=== PATIENT | female | born 1970 | race Caucasian/White ===

== ENCOUNTER → 2017-12-11 13:23 | Outpatient (CLI) | payer BC, SELFPAY ==
[2017-12-11 15:38] LABS: Free T3 2.7 pg/mL (2.18-3.98); T4 Free Direct 1.24 ng/dL (0.76-1.46); Thyroid Stim Hormone (TSH) 1.36 uIU/mL (0.358-3.74)
== END ==
PROVIDERS: Family Provider Radiologic Technologist Bone Densitometry; PCP Radiologic Technologist Bone Densitometry; Visit Provider Nurse Practitioner
DX: E03.9 Hypothyroidism, unspecified (principal)
CPT/HCPCS: 36415; 84439; 84443; 84481

== ENCOUNTER → 2018-01-15 09:54 | Outpatient (CLI) | payer BC, SELFPAY ==
--- NOTE | 2018-01-15 09:56 | HPBI_ITS ---
MAMMOGRAPHY - BILATERAL SCREENING REASON FOR EXAM: Female, 47 years old. Routine annual screening examination. PERTINENT HISTORY: Aunt with breast cancer. TECHNIQUE: Digital bilateral breast khanh (3D mammographic acquisition) in the CC and MLO projections. 2-D mediolateral oblique (MLO) and craniocaudad (CC) views of both breasts were obtained. CAD: Full Field Digital Mammography with Computer Added Detection was performed. COMPARISON: Comparison is made with prior study dated December 02, 2016 and October 24, 2011. FINDINGS: Breast Composition: There are scattered areas of fibroglandular density. There are no dominant masses or suspicious calcifications. No other significant abnormalities are identified. There has been no significant change since the prior study. HPBI/SCREENING MAMM (CAD), BILAT IMPRESSION: Stable bilateral screening mammogram. Yearly follow-up mammogram recommended. (A) ASSESSMENT CATEGORY: BIRADS Category 1: Negative. A letter regarding these results will be sent to the patient by the facility within 30 days. Approximately 10% of breast cancers are not detected by mammography. A normal mammogram should not delay biopsy of a clinically suspicious abnormality. [id number] Electronically Signed: Urban Nice MD at 12:28 EST Tel [phone], Service support ,
== END ==
PROVIDERS: Family Provider Radiologic Technologist Bone Densitometry; PCP Radiologic Technologist Bone Densitometry; Visit Provider Obstetrics & Gynecology
DX: Z12.31 Encounter for screening mammogram for malignant neoplasm of breast (principal)
CPT/HCPCS: 77063; 77067

== ENCOUNTER → 2018-01-20 10:28 | Outpatient (CLI) | payer BC, SELFPAY ==
[2018-01-20 14:08] LABS: Hemoglobin A1c 5.4 % (4.2-6.3)
[2018-01-20 14:20] LABS: Progesterone Level 30.88 ng/mL (See Comment)
[2018-01-20 14:50] LABS: Estradiol 27.6 pg/mL; Free T3 1.9 pg/mL (2.18-3.98); T4 Free Direct 1.25 ng/dL (0.76-1.46); Thyroid Stim Hormone (TSH) 1.74 uIU/mL (0.358-3.74)
[2018-01-21 12:05] LABS: DHEA Sulfate 27.2 ug/dL (41.2-243.7)
[2018-01-22 08:09] LABS: HPV Reflexed? NOT INDICATED
== END ==
PROVIDERS: Visit Provider Obstetrics & Gynecology
DX: N95.1 Menopausal and female climacteric states (principal); Z12.4 Encounter for screening for malignant neoplasm of cervix
CPT/HCPCS: 36415; 82533; 82627; 82670; 83036; 84144; 84403; 84439; 84443; 84481; 88175; 82626; G0145

== ENCOUNTER → 2018-09-09 14:12 | Outpatient (CLI) | payer BC, SELFPAY ==
[2018-09-09 15:42] LABS: Free T3 2.2 pg/mL (2.18-3.98); T4 Free Direct 1.07 ng/dL (0.76-1.46); Thyroid Stim Hormone (TSH) 1.69 uIU/mL (0.358-3.74)
== END ==
PROVIDERS: Referring Provider Nurse Practitioner; Visit Provider Nurse Practitioner
DX: E03.9 Hypothyroidism, unspecified (principal)
CPT/HCPCS: 36415; 84439; 84443; 84481

== ENCOUNTER → 2019-02-01 14:04 | Outpatient (CLI) | payer BC, SELFPAY ==
--- NOTE | 2019-02-01 14:06 | BI_ITS ---
MAMMOGRAPHY - BILATERAL SCREENING REASON FOR EXAM: Female, 48 years old. Routine annual screening examination. PERTINENT HISTORY: Aunt with breast cancer. Prior left surgical breast biopsy. TECHNIQUE: Digital bilateral breast khanh (3D mammographic acquisition) in the CC and MLO projections. 2-D mediolateral oblique (MLO) and craniocaudad (CC) views of both breasts were obtained. CAD: Full Field Digital Mammography with Computer Added Detection was performed. COMPARISON: Comparison is made with prior study dated January 15, 2018 and December 02, 2016. FINDINGS: Breast Composition: There are scattered areas of fibroglandular density. There are no dominant masses or suspicious calcifications. No other significant abnormalities are identified. There has been no significant change since the prior study. BI/SCREENING MAMM (CAD), BILAT IMPRESSION: Stable bilateral screening mammogram. Yearly follow-up mammogram recommended. (A) ASSESSMENT CATEGORY: BIRADS Category 1: Negative. A letter regarding these results will be sent to the patient by the facility within 30 days. Approximately 10% of breast cancers are not detected by mammography. A normal mammogram should not delay biopsy of a clinically suspicious abnormality. [id number] Electronically Signed: Urban Nice, at 15:57 EDT , Service support ,
== END ==
PROVIDERS: Visit Provider Obstetrics & Gynecology
DX: Z12.31 Encounter for screening mammogram for malignant neoplasm of breast (principal)
CPT/HCPCS: 77063; 77067

== ENCOUNTER → 2019-03-17 11:42 | Outpatient (CLI) | payer BC, SELFPAY ==
[2017-10-28 12:58] VITALS: BMI 25.3
[2019-03-17 14:08] LABS: Hemoglobin A1c 5.9 % (4.2-6.3)
[2019-03-17 14:09] LABS: Estradiol 11.5 pg/mL; Free T3 2.7 pg/mL (2.18-3.98); Thyroid Stim Hormone (TSH) 0.97 uIU/mL (0.358-3.74)
[2019-03-17 14:10] LABS: Progesterone Level 33.23 ng/mL (See Comment)
[2019-03-18 11:39] LABS: DHEA Sulfate 77.7 ug/dL (41.2-243.7)
[2019-03-21 14:38] LABS: HPV Reflexed? NOT INDICATED
== END ==
LOC: WOBLAB 11:43
PROVIDERS: Visit Provider Obstetrics & Gynecology
DX: Z12.4 Encounter for screening for malignant neoplasm of cervix (principal); N95.1 Menopausal and female climacteric states
CPT/HCPCS: 36415; 82533; 82627; 82670; 83036; 84144; 84403; 84439; 84443; 84481; 88175; 82626; G0145

== ENCOUNTER → 2019-11-16 11:18 | Outpatient (CLI) | payer BC, SELFPAY ==
[2017-10-28 12:58] VITALS: BMI 25.3
[2019-11-16 13:14] LABS: Thyroid Stim Hormone (TSH) 4.17 uIU/mL (0.358-3.74)
== END ==
PROVIDERS: Visit Provider Advanced Practice Midwife
DX: E05.90 Thyrotoxicosis, unspecified without thyrotoxic crisis or storm (principal)
CPT/HCPCS: 36415; 84443

== ENCOUNTER → 2020-04-05 14:15 | Outpatient (CLI) | payer BC, SELFPAY ==
[2017-10-28 12:58] VITALS: BMI 25.3
--- NOTE | 2020-04-05 | EMB_PTH ---
PATIENT: MARCO SANTANA LOC: [facility] U#:[id number] AGE/SX: 54/F ROOM: RE04/05/[address]: Dr. Sascha Vasquez MD : 1970 BED: DIS: SPEC #: [id number] RECD: 04/06/20 10:54 STATUS: LAKIA REQ #: [id number] CHARLES: 04/05/20 00:[address]: Sascha Vasquez DEPT: SURGICAL PATHOLOGY RECD BY: Anish Villalpando ENTERED: 04/06/20 10:54 SP TYPE: ENDOM BX/C ERICK DR: Dr. Debbie Calzada MD Tissues: Endometrium, NOS Procedures: Surgery Specimen Level IV HEADER OPERATION: Endometrial biopsy PRE-OP DIAGNOSIS: Abnormal uterine bleeding TISSUE SUBMITTED: Endometrial biopsy MICROSCOPIC DIAGNOSIS Endometrial biopsy: Proliferative endometrium. SJ:teresa 04/09/20 MICROSCOPIC DESCRIPTION Slides are reviewed. GROSS DESCRIPTION Received in fixative is one container labeled with the patient's name and designated EM biopsy. The specimen consists of multiple irregular fragments of starks-pink soft tissue that in aggregate measure 2.5 x 0.5 x <0.1 cm. The specimen is totally submitted in one cassette. / SJ:teresa 04/06/20 TC:4 CPT: 56766
== END ==
PROVIDERS: Visit Provider Obstetrics & Gynecology
DX: N93.8 Other specified abnormal uterine and vaginal bleeding (principal)
CPT/HCPCS: 88305

== ENCOUNTER 2020-05-28 05:29 | Day surgery (SDC) | payer BC, SELFPAY ==
--- NOTE | 2020-05-23 11:31 | EKG12_ITS ---
Test Reason : PRE OP Blood Pressure : / mmHG Vent. Rate : 064 BPM Atrial Rate : 064 BPM P-R Int : 136 ms QRS Dur : 072 ms QT Int : 410 ms P-R-T Axes : 013 066 017 degrees QTc Int : 422 ms Normal sinus rhythm Non-specific ST & T wave changes Abnormal ECG Confirmed by TERESA BEDOLLA, ANASTASIIA ([id number]), desk editor PATRICIO CRUZ ([id number]) on 05/25/2020 9:09:09 AM Referred By: Sascha Vasquez Confirmed By:NATA MOORE MD
[2020-05-23 12:09] LABS: Hematocrit 39.2 % (37-47); Hemoglobin 13.2 g/dL (12.0-15.0); Mean Corp Hgb Conc 33.7 g/dL (32-36); Mean Corpuscular Hgb 30.4 pg (27.0-32.0); Mean Corpuscular Volume 90.3 fL (81-99); Mean Platelet Vol. 10.6 fl (6.2-12.0); Platelet Count 424 K/mm3 (150-450); RBC Distribution Width SD 42.5 fl (35.1-43.9); Red Blood Count 4.34 M/mm3 (4.2-5.4); White Blood Count 7.8 K/mm3 (4.4-11.0)
[2020-05-23 12:20] LABS: Prothrombin Time (Protime)PT. 12.8 SECONDS (11.7-14.9)
[2020-05-23 12:21] LABS: Partial Thromboplast Time 30.7 Seconds (24.1-36.2)
[2020-05-23 12:39] LABS: Creatinine, Serum 0.59 mg/dL (0.55-1.02); EST Glomerular Filtration Rate 115 mL/min (>60); Est Glom Filt Rate - Afr Amer 139 mL/min (>60); Internal QC Validated? YES +Cl - CLEAR BKGD; Pregnancy, Serum, hCG Quali. NEGATIVE Negative
--- NOTE | 2020-05-27 21:23 | PCM.HP.BLA ---
History and Physical Date of Admission: 05/28/20 Surgical History and Physical Halie Chase, a 49 year old female 0 2 0 2 2, presents for Submucous Fibroids, Menorrhagia, Pelvic Pain on May at 7:30. -- Menorrhagia, Submucous Fibroids -- Submucous fibroids noted at u/s in 2019. Has tried multiple medications and had D and C for bleeding issues. Just done with this and wants hysterectomy. MEDICATIONS HISTORY: Patient is also takin. Advair Diskus 250 mcg-50 mcg/dose powder for inhalation 2. albuterol sulfate HFA 90 mcg/actuation aerosol inhaler 3. Singulair 10 mg tablet 4. levothyroxine 100 mcg tablet, One pill by mouth once a day 5. lisinopril 20 mg tablet, One pill by mouth once a day ALLERGIES: NKDA, sulfa, Hives, Sulfa (Sulfonamide Antibiotics), Hives and/or rash, [place], Anaphylaxis, Kiwi, Anaphylaxis, Banana, Anaphylaxis, melon and Anaphylaxis Infections - h/o UTIs, chicken pox Illnesses - HTN, asthma, endometriosis, thyroidectomy Accidents - no injuries of consequence Hospitalizations - Childbirth, see surgery and HTN ER visit h/o abn. pap, colposcopy, and LEEP 10 yrs. ago; Review of Systems: GENERAL - Denies fever, or chills SKIN - Denies skin changes EYES - Denies visual changes EARS - Denies difficulty hearing NOSE - Denies nasal congestion or bleeding MOUTH - Denies sore throat or difficulty swallowing NECK - Denies pain or swelling RESPIRATORY - Denies shortness of breath or wheezing CARDIOVASCULAR - Denies palpitations or chest pain GASTROINTESTINAL - Denies nausea, vomiting, diarrhea, constipation GENITOURINARY - Denies dysuria, frequency of urination, incontinence of urine MUSCULOSKELETAL - Denies joint or muscle pain NEUROLOGICAL - Denies localized numbness or weakness PSYCHIATRIC - Denies depression or anxiety ENDOCRINE - Denies heat or cold intolerance, weight loss or gain HEMATO-IMMUNOLOGIC - Denies excessive bleeding with cuts SOCIAL HISTORY: Alcohol Use - RARELY Smoking - used to smoke but quit Diet - balanced Diet Lifestyle - high stress lifestyle Exercise - minimal Seat Belt Use - always Employer - [employer] Job Description - manager diabetes Illicit Drug Use - denies use of street drugs Sexual Activity - not currently Residence - owns a home Hours Worked - full-time Spouse-Sig Other Name - n/a Children Name(s) - Jeramie Arguelles twins Control - abstinence FAMILY HISTORY: Family history of 2 maternal aunts- breast cancer. Maternal Grandmother: Marshall Dz.. MENSTRUAL HISTORY: LMP Known?- Definite Amount/Duration - 4 days, Regularity - Irregular, Frequency - variable days, LMP - 03/29/20, Age Onset Menarche - 11 PAST PREGNANCIES: Total Pregnancies - 1; Full Term Pregnancies - 0; Premature - 2; Abortions, Induced - 0; Abortions, Spontaneous - 0; Ectopics - 0; Multiple Births - 2; Living Children - 2 SURGICAL HISTORY: 1. LEEP 1992 2. Breast cyst 1992 3. Total Thyroidectomy 2006 4. Laparoscopy , 5. Gallbladder 2000 6. Colopscopy 7. Hysteroscopy PHYSICAL EXAM BP- 138/82 Sitting, Right arm, regular cuff Weight- 165.33431 lbs Height- 67.25 inch BMI:25.70 CONSTITUTIONAL - NAD, well nourished, and well developed SKIN - No rash, lesions, or ulcers HEENT - Normocephalic, PERRLA, EOMI NECK - No nodes, no nuchal rigidity and thyroid normal size and texture LYMPH NODES - Palpation of lymph nodes in neck and groins within normal limits LUNGS - CTA x2 without wheezes, crackles or rales CARDIAC - Regular rate and rhythm without rubs, murmurs, or gallops ABDOMEN - Without hepatosplenomegaly, distention, masses, rebound, or guarding; normal bowel sounds; no hernias EXTREMITIES - No edema or calf tenderness NEUROLOGICAL - Cranial nerves II-XII grossly intact PSYCHIATRIC - A and O to time, place, person, mood and affect External Genital Vagina - non-tender without lesions Urethra/Urethral Meatus - non-tender Bladder - non-tender Vagina - vaginal thomas are pink and moist without loss of rugae and no evidence of atropy Cervix - without cervical motion tenderness and has normal size and features without evident lesions Uterus - multiparous size 6 cm & wt 75-125 g Adnexa - Know fibroid an rt ovarian cyst per US, unable to palpate,no tenderness to palpation noted ASSESSMENT/PLAN: 1. Abdominal Pain Generalized, Premenopause Menorrhagia and Submucous Leiomyoma Of Uterus EMBx OK. Discussed options for treatment in light of multiple treatments tried over the years pt desires proceeding with hysterectomy. Cervix high in vagina so will proceed with RAVH/BSO. Discussed RBAS and all questions answered.
[2020-05-28] VITALS (11 sets, daily range): BP systolic 98–159; BP diastolic 50–87; PULSE 60–85; RESP 14–18; TEMP 36.2–36.9; O2SAT 96–100; BMI 25.8
[2020-05-28 06:08] LABS: Internal QC Validated? YES +Cl - CLEAR BKGD; Pregnancy, Urine Negative Negative
[2020-05-28] MEDS: Lactated Ringers 1,000 ML 100 ML IV ×2 (06:44→06:45)
--- NOTE | 2020-05-28 07:30 | HYST_PTH ---
PATIENT: MARCO SANTANA [place] [facility] [place][id number] AGE/SX: 49/F ROOM: RE05/28/[address]: Dr. Sascha Vasquez MD : 1970 BED: DIS: 05/29/2020 SPEC #: [id number] RECD: 05/28/20 10:51 STATUS: LAKIA JERSE[place] #: [id number] CHARLES: 05/28/20 07:[address]: Sascha Vasquez DEPT: SURGICAL PATHOLOGY RECD BY: Alex Avila Tissues: Uterus, NOS Procedures: Surgery Specimen Level V HEADER OPERATION: Lap robotic hysterectomy, BSO PRE-OP DIAGNOSIS: Abdominal pain; premenopause menorrhagia; submucous leiomyoma of uterus TISSUE SUBMITTED: Uterus, bilateral fallopian tubes and ovaries MICROSCOPIC DIAGNOSIS Uterus, hysterectomy: Cervix - nabothian cysts, squamous metaplasia and minimal chronic inflammation. Endometrium - transition endometrium. Myometrium - superficial adenomyosis. Right fallopian tube - no pathologic change. Right ovary - no pathologic change. Left fallopian tube - no pathologic change. Left ovary - corpus luteal cyst and corpora albicantia. AM:teresa 05/29/20 MICROSCOPIC DESCRIPTION Slides are reviewed. GROSS DESCRIPTION Received in fixative is one container labeled with the patient's name and designated uterus, bilateral fallopian tubes and ovaries. The specimen consists of a hysterectomy specimen consisting of uterus with cervix and attached bilateral fallopian tubes and ovaries. The uterus with cervix weighs 92 gm and measures 8.5 x 6 x 4 cm. The serosal surface is starks, glistening. The ectocervical mucosa is unremarkable. The external os is oval in contour. The endocervical canal measures 3 cm in length and the endocervical mucosa is unremarkable. The triangular endometrial cavity measures 4 cm in length and up to 2.5 cm in width. The endometrium is starks, glistening without any mass lesion and measures <0.1 cm in thickness. Sections of the uterine wall do not reveal any mass lesion and it measures up to 2.2 cm in thickness. The right fallopian tube measures 7 cm in length and up to 0.7 cm in diameter. The fimbrial end is identified. The right ovary measures 2 x 1 x 1 cm. Sections reveal unremarkable cut surfaces. The left fallopian tube is similar appearance to right and measures 5 cm in length and 0.9 cm in diameter. The left ovary measures 2.5 x 2 x 0.7 cm. Sections reveal a cyst filled with clear fluid measuring 0.5 cm in greatest dimension. No tubo-ovarian adhesions are identified on both right or left side. Bakery Decorator sections are submitted in ten cassettes as follows: 1 - anterior cervix, 2 - posterior cervix, 3 & 4 - anterior uterine wall, 5 & 6 - posterior uterine wall, 7 - right fallopian tube, 8 - right ovary, 9?- left fallopian tube, 10 - left ovary. / PASCUAL:tereas 05/28/20 TC:5 CPT: 82122
--- NOTE | 2020-05-28 07:34 | OP.PCM_ITS ---
Report of Operation Date of Procedure: 05/28/20 Pre-Operative Diagnosis: Menorrhagia, Submucous Fibroids Post-Operative Diagnosis: Menorrhagia, Submucous Fibroids Surgery/Procedure Performed:: Robotic Assisted Vaginal Hysterectomy and Bilateral Salpingo-Oophorectomy Description of Surgical Findings:: 10 cm uterus with normal-appearing fallopian tubes and ovaries. project management engineer: Isai Munoz Type of Anesthesia:: General - Endotracheal Anesthesiologist: Paul Jones Specimen's removed: Uterus and bilateral fallopian tubes and ovaries Drains: Cortes to straight drain Estimated Blood Loss (mL): Minimal Fluids Replaced: Crystalloid Description of Procedure: Surgeon: Sascha Vasquez MD, FACOG Indication: This is a 49 year old patient who has been having problems with heavy periods and submucous fibroids. Conservative measures have not been helpful. The patient has been counseled regarding the risks, benefits and alternatives of this procedure including the possibility of bleeding, infection, and injury to surrounding structures such as bowel bladder and all questions were answered. She understands that if BSO is done that she will need to be on HRT for an indefinite period of time. Procedure: Pt taken to the operating room where, after induction of general anesthesia, the patient was prepped and draped in the usual sterile fashion and placed on a non-slip Huggy-u-vac device. Trendelenburg test was satisfactory. Bladder was drained of urine with a latex free Cortes catheter which was left in place. Anterior cervix grasped and cervix was dilated to about 3-4 mm. Uterus sounded to 8 cms. 0-Vicryl suture was placed at the 3:00 and 9:00 position of the cervix. A small Advincula Email Marketing Coordinator Uterine Manipulator was then placed in the uterus and attention was turned to the laparoscopic portion of the procedure. Ropivocaine 0.5% was injected approximately 2-3 cm superior to the umbilicus and an 8 mm robotic camera port was introduced directly with intraperitoneal placement confirmed with CO2 insufflation. 8 mm robotic side ports were introduced under direct visualization approximately 11 cm lateral and 2 cm inferior to the umbilical port. A 5 mm left upper quadrant port was introduced and airseal insufflation with CO2 was started. The above findings were noted. Robot was docked without difficulty and attention turned to the robotic portion of the procedure. Approximately 20 cc of Ropivicaine was used. Bilateral infundibulopelvic ligaments were ligated with 35 jorgensen bipolar coagulation to the level of the round ligament. The posterior aspect of the cervix was identified and then opened for about 1 cm using 25 watt monopolar cautery identifying the uterine manipulating device which had been placed vaginally. Bladder flap was opened and divided to the level of the round ligaments using monopolar cautery. Progressive bites were then ligated on each side of the cervix with 35 jorgensen bipolar cautery to the uterine arteries. The anterior vaginal mucosa was entered and cervix circumscribed with monopolar cautery. Uterus and attached tubes and ovaries were removed through the vagina. Vaginal cuff was closed first with 0-Vicryl Tigre stitches placed at each angle followed by closure of the mid-cuff with 0-Monocryl V-lock suture in two layers. Pelvis was copiously irrigated with saline and the right ureter was noted to peristalse. Robot was undocked and trocars were removed with as much gas as possible. Incisions were closed with 4-0 Monocryl subcuticular sutures and incisions covered with steri-strips. The patient tolerated the procedure well and was taken to the recovery room in satisfactory condition. Sponge, instruments and needle counts were all correct. There were no apparent complications of the surgery. Cefotan 2 gms IV was given prior to the procedure. Grafts/Implants Used: None - Complications None - Admit VTE Documentation VTE Present on Admission: Yes VTE Mechan Device Prophylaxis: SCD's VTE Pharm Prophylaxis ordered?: Yes
--- NOTE | 2020-05-28 07:36 | DCINST_ITS ---
Discharge Diet: No Restrictions Discharge Activity: Return to Normal Activity, May Not Drive - while taking narcotic pain medications., May Shower, May Take a Tub Bath May resume sexual activity in: 6-8 weeks Call your doctor if your incision/area has: Continuous Slow Oozing, Sudden Inc reased Bleeding, Increased Pain/ Swelling, Increased Redness, Foul Smelling Discharge Call your doctor if you observe: Fever of 101 or Higher, Inability to urinate, Inability to have a bowel movement, Using more than one pad per hour Allergies/Adverse Reactions: Allergies Sulfa (Sulfonamide Antibiotics) Allergy (Severe, Verified 05/28/20 05:56) Unknown sulfamethoxazole [From Bactrim] Allergy (Severe, Verified 05/28/20 05:56) Unknown trimethoprim [From Bactrim] Allergy (Severe, Verified 05/28/20 05:56) Unknown banana Allergy (Verified 05/28/20 05:56) Anaphylaxis kiwi Allergy (Verified 05/28/20 05:56) Anaphylaxis latex Allergy (Verified 05/28/20 05:56) Hives melon Allergy (Verified 05/28/20 05:56) Anaphylaxis strawberry Allergy (Verified 05/28/20 05:56) Anaphylaxis latex gloves Allergy (Severe, Uncoded 05/28/20 05:56) Unknown Medications to take at Discharge ergocalciferol (vitamin D2) 1,250 mcg (50,000 unit) capsule 50,000 unit PO QWEEK 10/28/17 levalbuterol HCl 1.25 mg/3 mL solution for nebulization 1.25 mg INHALATION Q4H PRN 10/28/17 levalbuterol tartrate 45 mcg/actuation aerosol inhaler 2 inh INHALATION Q6H PRN 10/28/17 lisinopril 10 mg tablet 20 mg PO QDAY 10/28/17 Levothyroxine [Synthroid] 100 mcg PO DAILY 05/22/20 Docusate Sodium [Colace] 100 mg PO BID PRN PRN #60 cap 05/28/20 Estradiol 1 mg PO DAILY #100 tab 05/28/20 Oxycodone [Oxyir] 5 mg PO Q6H PRN PRN 7 Days #20 tablet 05/28/20 The following prescriptions were given: Docusate Sodium [Colace] 100 mg PO BID PRN PRN #60 cap PRN Reason: Constipation Transmission Status: Pending to [facility] [address] Estradiol 1 mg PO DAILY #100 tab Transmission Status: Pending to [facility] [address] Oxycodone [Oxyir] 5 mg PO Q6H PRN PRN 7 Days #20 tablet PRN Reason: Pain Score 6-10/10 Transmission Status: Received by [facility] Primary Care Physician: CARROLL BATES [Other] Test Results: Test results from this visit will be discussed in further detail at your follow- up appointment, if applicable. Please Follow Up With: Sascha Vasquez MD When: 2 to 3 weeks
--- NOTE | 2020-05-28 11:21 | CPS ---
smi placed at bedside...pt not in room.
[2020-05-28] MEDS: Dextrose 5%-Lactated Ringers 1,000 ML 150 ML IV ×2 (11:45→18:37)
[2020-05-28] MEDS: Ketorolac 30 MG/ML Syringe IV ×2 (16:18→21:00)
[2020-05-28] MEDS: Enoxaparin 30 MG/0.3 ML Syringe SC (18:38)
[2020-05-29] MEDS: Ketorolac 10 MG Tablet PO ×2 (03:24→08:00)
[2020-05-29 04:00] VITALS: BP 108/57; PULSE 60; RESP 17; TEMP 36.6; O2SAT 97
[2020-05-29] MEDS: Levothyroxine 100 MCG Tablet PO (05:51)
[2020-05-29 06:07] LABS: Hematocrit 33.8 % (37-47); Hemoglobin 11.1 g/dL (12.0-15.0); Mean Corp Hgb Conc 32.8 g/dL (32-36); Mean Corpuscular Hgb 30.2 pg (27.0-32.0); Mean Corpuscular Volume 91.8 fL (81-99); Mean Platelet Vol. 10.5 fl (6.2-12.0); Platelet Count 344 K/mm3 (150-450); RBC Distribution Width CV 13.3 % (11.6-14.6); Red Blood Count 3.68 M/mm3 (4.2-5.4); White Blood Count 11.3 K/mm3 (4.4-11.0)
[2020-05-29 06:29] LABS: Creatinine, Serum 0.79 mg/dL (0.55-1.02); EST Glomerular Filtration Rate 81 mL/min (>60); Est Glom Filt Rate - Afr Amer 99 mL/min (>60); Estimated Creatinine Clearance 81.93 ml/min
[2020-05-29 07:14] VITALS: O2SAT 96
[2020-05-29] MEDS: Estrogens,Conj. 0.625 MG Tablet PO (08:00)
[2020-05-29] MEDS: Lisinopril 20 MG Tablet PO (08:01)
--- NOTE | 2020-05-29 08:50 | PN.OBGYN_ITS ---
Subjective: Patient without complaints. Tolerating diet well. Positive flatus. Minimal vaginal bleeding. Cortes catheter is out. Objective: Wounds are clean, dry, intact. Good urine output. Hemoglobin and creatinine okay. - Physical Exam Vitals/I&O's: Vital Signs Temp Pulse Resp BP Pulse Ox 98 F 60 17 108/57 L 96 05/29/20 04:00 05/29/20 04:00 05/29/20 04:00 05/29/20 04:00 05/29/20 07:14 Oxygen Flow Rate (L/min) 3 Oxygen Delivery Method Room Air Weight: 165 lb 2.02 oz Body Mass Index (BMI) 25.8 Intake and Output for Last 24 Hours 05/27/20 05/28/20 05/29/20 23:59 23:59 23:59 Intake Total 4170 / 4170 1440 / 1440 Output Total 3650 / 3650 400 / 400 Balance 520 / 520 1040 / 1040 Laboratory Results 05/29/20 06:02: WBC 11.3 H, RBC 3.68 L, Hgb 11.1 L, Hct 33.8 L, MCV 91.8, MCH 30.2, MCHC 32.8, RDW Std Deviation 45.0 H, RDW Coeff of Nan 13.3, Plt Count 344, MPV 10.5 05/29/20 06:02: Creatinine 0.79, Estim Creat Clear Calc 81.93, Est GFR (MDRD) Af Amer 99, Est GFR (MDRD) Non-Af 81 Current Medications Acetaminophen (Tylenol) 1,000 mg PO Q8H PRN PRN PRN Reason: Pain Score 1-3/10 or Fever Albuterol Sulfate (Ventolin Aerosols) 2.5 mg INHALATION Q4H PRN PRN Reason: ASTHMA Docusate Sodium (Colace) 100 mg PO BID PRN PRN PRN Reason: CONSTIPATION Estrogens Conjugated (Premarin) 0.625 mg PO DAILY [facility] Last Admin: 05/29/20 08:00 Dose: 0.625 mg Documented by: Hydromorphone HCl (Dilaudid Inj) 0.5 mg IV Q3H PRN PRN PRN Reason: Pain Score 4-10/10 Ketorolac Tromethamine (Toradol) 10 mg PO Q6H [facility] Stop: 06/02/20 15:30 Last Admin: 05/29/20 08:00 Dose: 10 mg Documented by: Levothyroxine Sodium (Synthroid) 100 mcg PO DAILY@0600 [facility] Last Admin: 05/29/20 05:51 Dose: 100 mcg Documented by: Lisinopril (Zestril) 20 mg PO DAILY [facility] Last Admin: 05/29/20 08:01 Dose: 20 mg Documented by: Ondansetron HCl (Zofran) 4 mg IV Q4H PRN PRN PRN Reason: NAUSEA Oxycodone HCl (Oxyir) 5 mg PO Q4H PRN PRN PRN Reason: Pain Score 4-10/10 Simethicone (Mylicon) 80 mg PO [facility] Last Admin: 05/29/20 08:00 Dose: 80 mg Documented by: Sodium Chloride () 10 - 40 ml IV UD PRN PRN Reason: SALINE FLUSH Medical Necessity - Tobacco Use Smoking Status: Never smoker Tobacco Use: Non-smoker Assessment/Plan All Active Problems (Last Reviewed 10/28/17 @ 12:56 by Tina Valenzuela) Hypothyroidism (acquired) (Acute) Doing well postoperative day #1 status post robotic assisted vaginal hysterectomy and bilateral salpingo-oophorectomy. Will discharge to home with routine instructions.
[2020-05-29 09:54] VITALS: BP 130/57; PULSE 62; RESP 16; TEMP 36.7; O2SAT 100
--- NOTE | 2020-05-29 12:16 | PHA.DC.MC ---
Pharmacy Service has performed discharge medication reconciliation and counseling for this patient. 1. DOCUSATE 100MG PO BID PRN CONSTIPATION 2. ESTRADIOL 1MG PO DAILY 3. OXYCODONE 5MG PO Q6H PRN PAIN 6-10/10 FOR 7 DAYS The patient's discharge medication list was reviewed for discrepancies and discrepancies were resolved. Home Medications ergocalciferol (vitamin D2) 1,250 mcg (50,000 unit) capsule 50,000 unit PO QWEEK 10/28/17 levalbuterol HCl 1.25 mg/3 mL solution for nebulization 1.25 mg INHALATION Q4H PRN 10/28/17 levalbuterol tartrate 45 mcg/actuation aerosol inhaler 2 inh INHALATION Q6H PRN 10/28/17 lisinopril 10 mg tablet 20 mg PO QDAY 10/28/17 Levothyroxine [Synthroid] 100 mcg PO DAILY 05/22/20 Docusate Sodium [Colace] 100 mg PO BID PRN PRN #60 cap 05/28/20 Estradiol 1 mg PO DAILY #100 tab 05/28/20 Oxycodone [Oxyir] 5 mg PO Q6H PRN PRN 7 Days #20 tab 05/28/20 The patient was counseled on the following discharge medications and changes in medications for homegoing were reviewed. The Reason for Use, instructions for use, and potential side effects were reviewed for all new medications. The patient's questions regarding all of their medications were answered. The patient was able to verbally demonstrate an understanding of their discharge medications.
== END 2020-05-29 13:03 | disposition home or self-care (01) ==
LOC: SDC 05:29 → AC 05:30 → MS3 09:54
PROVIDERS: Anesthesiology; Referring Provider Obstetrics & Gynecology; Visit Provider Obstetrics & Gynecology
PROC: 0UT94ZZ Resection of Uterus, Percutaneous Endoscopic Approach (ICD-10-PCS; CPT 58552; principal; 2020-05-28 07:10)
DX: D25.0 Submucous leiomyoma of uterus (principal); N92.0 Excessive and frequent menstruation with regular cycle; Z11.59 Encounter for screening for other viral diseases; Z79.899 Other long term (current) drug therapy; I10 Essential (primary) hypertension; J45.909 Unspecified asthma, uncomplicated; Z87.891 Personal history of nicotine dependence; N88.8 Other specified noninflammatory disorders of cervix uteri; N83.12 Corpus luteum cyst of left ovary; E03.9 Hypothyroidism, unspecified; R94.31 Abnormal electrocardiogram [ECG] [EKG]
CPT/HCPCS: 00940; 58552; S2900; 36415; 81025; 82565; 84703; 85027; 85610; 85730; 86850; 86900; 86901; 87635; 88307; 93005; 99251; G2023; J7120; G0463; J2405; U0003

== ENCOUNTER 2021-12-23 10:11 | Outpatient (CLI) | payer OTHER, SELFPAY ==
--- NOTE | 2021-12-23 10:24 | BI_ITS ---
MAMMOGRAPHY - BILATERAL SCREENING REASON FOR EXAM: Female, 51 years old. Routine annual screening examination. PERTINENT HISTORY: Aunt with breast cancer. TECHNIQUE: Digital bilateral breast bertram (3D mammographic acquisition) in the CC and MLO projections. 2-D mediolateral oblique (MLO) and craniocaudad (CC) views of both breasts were obtained. CAD: Full Field Digital Mammography with Computer Added Detection was performed. COMPARISON: Comparison is made with prior study 02/01/2019 and 01/15/2018. FINDINGS: Breast Composition: There are scattered areas of fibroglandular density. There are no dominant masses or suspicious calcifications. No other significant abnormalities are identified. There has been no significant change since the prior study. BI/SCRN MAMM (CAD)W/BERTRAM BILAT IMPRESSION: Stable bilateral screening mammogram. Yearly follow-up mammogram recommended. (A) ASSESSMENT CATEGORY: BIRADS Category 1: Negative. A letter regarding these results will be sent to the patient by the facility within 30 days. Approximately 10% of breast cancers are not detected by mammography. A normal mammogram should not delay biopsy of a clinically suspicious abnormality. [id number] Electronically Signed: Urban Nice MD at 12:06 EST ,
== END 2021-12-23 23:59 | disposition home or self-care (01) ==
LOC: OPBI 10:23
PROVIDERS: Referring Provider Obstetrics & Gynecology; Visit Provider Obstetrics & Gynecology
DX: Z12.31 Encounter for screening mammogram for malignant neoplasm of breast (principal)
CPT/HCPCS: 77063; 77067

== ENCOUNTER → 2022-12-24 | Outpatient (CLI) | payer OTHER, SELFPAY ==
--- NOTE | 2022-12-24 09:52 | BI_ITS ---
MAMMOGRAPHY - BILATERAL SCREENING REASON FOR EXAM: Female, 52 years old. Routine annual screening examination. PERTINENT HISTORY: Remote excisional left breast biopsy. TECHNIQUE: Digital bilateral breast bertram (3D mammographic acquisition) in the CC and MLO projections. 2-D mediolateral oblique (MLO) and craniocaudad (CC) views of both breasts were obtained. CAD: Full Field Digital Mammography with Computer Added Detection was performed. COMPARISON: Comparison is made with prior study dated 12/23/2021 and 02/01/2019. FINDINGS: Breast Composition: There are scattered areas of fibroglandular density. There are no dominant masses or suspicious calcifications. There is asymmetry of breast tissue with more breast tissue is seen in the retroareolar region of the right breast as compared to the left side. No other significant abnormalities are identified. There has been no significant change since the prior study. BI/SCRN MAMM (CAD)W/BERTRAM BILAT IMPRESSION: Stable bilateral screening mammogram. Yearly follow-up mammogram recommended. (A) ASSESSMENT CATEGORY: BIRADS Category 2: Benign. A letter regarding these results will be sent to the patient by the facility within 30 days. Approximately 10% of breast cancers are not detected by mammography. A normal mammogram should not delay biopsy of a clinically suspicious abnormality. [id number] Electronically Signed: Urban Nice MD at 12:58 EST ,
== END | disposition home or self-care (01) ==
LOC: OPBI 09:48
DX: Z12.31 Encounter for screening mammogram for malignant neoplasm of breast (principal)
CPT/HCPCS: 77063; 77067

== ENCOUNTER → 2024-10-05 | Outpatient (CLI) | payer OTHER, SELFPAY ==
--- NOTE | 2024-10-05 08:58 | BI_ITS ---
MAMMOGRAPHY - BILATERAL SCREENING 3-D TOMOSYNTHESIS REASON FOR EXAM: Female, 53 years old. Routine screening PERTINENT HISTORY: Grandmothers and aunts with breast cancer.. TECHNIQUE: 2-D mammograms and 3-D Tomosynthesis of the breast (s) were performed. CAD was performed. COMPARISON: 12/23/2021 FINDINGS: The breast composition is composed of scattered fibroglandular density. Scattered benign calcifications are seen. No dense spiculated masses or suspicious microcalcifications are identified. No architectural distortion is identified. There is no skin thickening or retraction. There has been no significant change since the prior study. BI/SCRN MAMM (CAD)W/BERTRAM BILAT IMPRESSION: No mammographic signs of malignancy. Routine yearly mammograms recommended. ASSESSMENT CATEGORY: BIRADS Category 1: Negative. A letter regarding these results will be sent to the patient by the facility within 30 days. FOLLOW UP RECOMMENDATION: Yearly follow up mammogram recommended. (A) Approximately 10% of breast cancers are not detected by mammography. A normal mammogram should not delay biopsy of a clinically suspicious abnormality. Electronically Signed: Scout Lucio MD at 10:52 EST ,
== END | disposition home or self-care (01) ==
LOC: OPBI 08:57
PROVIDERS: PCP Nurse Practitioner Family; Referring Provider Nurse Practitioner Family; Visit Provider Nurse Practitioner Family
DX: Z12.31 Encounter for screening mammogram for malignant neoplasm of breast (principal)
CPT/HCPCS: 77063; 77067

== ENCOUNTER → 2025-11-03 | Outpatient (CLI) | payer BC, SELFPAY ==
--- NOTE | 2025-11-03 10:47 | BI_ITS ---
EXAM: SCRN MAMM (CAD)W/BERTRAM BILAT DATE: 11/03/2025 CLINICAL HISTORY: F, Age 54 y/o , SCREENING TECHNIQUE: Procedure Code: [id number] Modality: MG Procedure: SCRN MAMM (CAD)W/BERTRAM BILAT COMPARISON: Prior exam(s) dating back to January 2019 FINDINGS: TISSUE DENSITY: There are scattered areas of fibroglandular density. Bilateral Breast Mammographic Findings: Right breast: no significant masses, calcifications or other abnormalities are identified. Left breast: There is focal asymmetry in the lower outer breast at mid depth. Recommend diagnostic left breast mammogram spot compression CC/MLO views, full field true lateral view and possible targeted ultrasound scanning the left breast from 3:00 to 6:00 about 5 cm from the nipple. BI/SCRN MAMM (CAD)W/BERTRAM BILAT IMPRESSION: Additional diagnostic imaging is recommended of the left breast as described ab ove. No mammographic evidence of malignancy in the right breast. OVERALL FINAL ASSESSMENT BI-RADS 0: INCOMPLETE - NEED ADDITIONAL IMAGING EVALUATION. RECOMMENDATION: Additional Views obtained/call backs Additional Recommendation none A letter with findings and recommendations will be mailed to the patient. Reading Location: [id number]
--- OUTSIDE RECORDS SUMMARY | 2025-11-03 11:03 | XMS RPT_ITS | CCD ---
Author Organization [facility] Care Team Providers Care Visual Lead Name Role Phone Milly JEFF, Janine Garcia Unavailable Paul Allen MD Primary Care Provider OSCAR VALENZUELA Attending Unavailable PAUL ALLEN Primary Care Unavailable OSCAR VALENZUELA Referring Unavailable SELF, SELF Referring Unavailable PAUL ALLEN Primary Care Unavailable OSCAR VALENZUELA Attending Unavailable Calzada, Carroll N Referring Unavailable Calzada, Carroll N Attending Unavailable Calzada, Carroll N Primary Care Unavailable CALZADA FOOD PREPARATION KITCHEN AIDE, CARROLL N Consulting Unavail able CALZADA FOOD PREPARATION KITCHEN AIDE~[phone], CALZADA CARROLL N Pr imary Care Unavailable CALZADA FOOD PREPARATION KITCHEN AIDE~[phone], CALZADA CARROLL N At tending Unavailable CALZADA FOOD PREPARATION KITCHEN AIDE~[phone], CALZADA CARROLL N Ad mitting Unavailable CALZADA FOOD PREPARATION KITCHEN AIDE, CARROLL N Consulting Unavail able CALZADA FOOD PREPARATION KITCHEN AIDE, CARROLL N Consulting Unavail able CALZADA FOOD PREPARATION KITCHEN AIDE~[phone], CALZADA CARROLL N Ad mitting Unavailable CALZADA FOOD PREPARATION KITCHEN AIDE~[phone], CALZADA CARROLL N Pr imary Care Unavailable CALZADA FOOD PREPARATION KITCHEN AIDE~[phone], CALZADA CARROLL N At tending Unavailable CALZADA FOOD PREPARATION KITCHEN AIDE, CARROLL N Consulting Unavail able CALZADA FOOD PREPARATION KITCHEN AIDE~[phone], CALZADA CARROLL N Ad mitting Unavailable CALZADA FOOD PREPARATION KITCHEN AIDE, CARROLL N Consulting Unavail able CALZADA FOOD PREPARATION KITCHEN AIDE~[phone], CALZADA CARROLL N Pr imary Care Unavailable CALZADA FOOD PREPARATION KITCHEN AIDE~[phone], CALZADA CARROLL N At tending Unavailable CALZADA FOOD PREPARATION KITCHEN AIDE, CARROLL N Consulting Unavail able CALZADA FOOD PREPARATION KITCHEN AIDE, CARROLL N Consulting Unavail able CALZADA FOOD PREPARATION KITCHEN AIDE~[phone], CALZADA CARROLL N Pr imary Care Unavailable CALZADA FOOD PREPARATION KITCHEN AIDE~[phone], CALZADA CARROLL N At tending Unavailable CALZADA FOOD PREPARATION KITCHEN AIDE~[phone], CALZADA CARROLL N Ad mitting Unavailable CALZADA FOOD PREPARATION KITCHEN AIDE, CARROLL N Consulting Unavail able MAME BEDOLLA, SAROJ Garcia Consulting Unavaila ble MAME BEDOLLA, SAROJ Garcia Consulting Unavaila ble CATER L~[phone], GNIGER HOROWITZ Admitting Unavailable CATER L~[phone], GINGER HOROWITZ Attending Unavailable CALZADA FO[employer] PREPARATION KITCHEN AIDE, CARROLL N Consulting Unavail able CALZADA FOOD PREPARATION KITCHEN AIDE~[phone], CALZADA CARROLL N Pr imary Care Unavailable CALZADA FOOD PREPARATION KITCHEN AIDE, CARROLL N Consulting Unavail able CARLOS MANUEL TAY Consulting Unavailable CARLOS MANUEL TAY Consulting Unavailable CALZADA FOOD PREPARATION KITCHEN AIDE, CARROLL N Consulting Unavail able CALZADA FOOD PREPARATION KITCHEN AIDE~[phone], CALZADA CARROLL N Pr imary Care Unavailable MAXX LATHAM Admitting Unavailable MAXX LATHAM Attending Unavailable CALZADA FOOD PREPARATION KITCHEN AIDE, CARROLL N Consulting Unavail able VANSUCHMAXX Consulting Unavailable MAXX LATHAM Consulting Unavailable CALZADA FOOD PREPARATION KITCHEN AIDE, CARROLL N Consulting Unavail able CALZADA FOOD PREPARATION KITCHEN AIDE~[phone], CALZADA CARROLL N Pr imary Care Unavailable MAXX LATHAM Admitting Unavailable MAXX LATHAM Attending Unavailable CALZADA FOOD PREPARATION KITCHEN AIDE, CARROLL N Consulting Unavail able VANSUCH, MAXX Consulting Unavailable VANSUCH, MAXX Consulting Unavailable Allergies Allergy Classification Reported Allergen(s) Allergy Type Date of Onset Reaction(s) Facility (4 sources) Latex rubber gloves drug allergy 07-30-20 [facility] Work Phone: (4 sources) sulfamethoxazole / trimethoprim drug allergy [facility] Work Phone: (4 sources) Sulfonamides (Antibiotic) drug allergy 07-30-20 [facility] Work Phone: (1 source) Banana Extract Drug Allergy 05-28-20 Anaphylaxis [facility] (1 source) Latex Allergy to substance 09-10-20 [facility] (1 source) Melon Allergy to substance 05-28-20 Anaphylaxis [facility] (1 source) strawberry allergenic extract Drug Allergy 05-28-20 Anaphylaxis [facility] (1 source) Sulfamethoxazole Drug Allergy 05-28-20 Unknown [facility] (1 source) Sulfonamides (Antibiotic) Allergy to substance 05-28-20 Unknown [facility] (1 source) Trimethoprim Drug Allergy 05-28-20 Unknown [facility] (1 source) kiwi Allergy to substance 05-28-20 Anaphylaxis [facility] (2 sources) Sulfonamides (Antibiotic) Propensity to adverse reactions to drug 12-13-19 [facility] (1 source) Banana Extract Drug Allergy 05-28-20 [facility] Repository (1 source) Latex Drug allergy (disorder) 09-10-20 [facility] Repository (1 source) Melon Drug allergy (disorder) 05-28-20 [facility] Repository (1 source) strawberry allergenic extract Drug Allergy 05-28-20 [facility] (1 source) Sulfamethoxazole Drug Allergy 05-28-20 [facility] (1 source) Sulfonamides (Antibiotic) Drug allergy (disorder) 05-28-20 [facility] Repository (1 source) Trimethoprim Drug Allergy 05-28-20 [facility] Repository (1 source) kiwi Drug allergy (disorder) 05-28-20 [facility] Repository (1 source) Sulfonamides (Antibiotic) Drug allergy (disorder) [facility] Repository Medications Current Medications Medication Drug Class(es) Dates Sig (Normalized) Sig (Original) docusate sodium 100 mg oral capsule (1 source) Start: 05-28-2020 take 100 mg by mouth twice daily as needed Docusate Sodium Active 100 MG PO TWICE DAILY NEEDED 60 May 27, 2020 11:00pm ergocalciferol 1.25 mg oral capsule (7 sources) Provitamin D2 Compound Start: 04-25-2015 take 1 capsule by mouth every week ERGOCALCIFEROL 81884 UNITS Cap TAKE ONE CAPSULE BY MOUTH EVERY WEEK 4 Cap 0 04/25/2015 Active VITAMIN D2 TABS 50,000 U q wk ERGOCALCIFEROL TABS [id number] Tina Valenzuela LPN VITAMIN D2 TABS 50,000 U q wk ERGOCALCIFEROL TABS [id number] Tina Valenzuela LPN estradiol 1 mg oral tablet (1 source) Estrogen Start: 05-28-2020 take 1 mg by mouth once daily Estradiol Active 1 MG PO DAILY 100 May 27, 2020 11:00pm levalbuterol 0.417 mg/ml inhalation solution (14 sources) beta2-Adrenergi c Agonist Start: 10-28-2017 take 1.25 mg by inhalation every four hours Levalbuterol Hcl (Xopenex) 1.25 mg/3 mL solution for nebulization Active 1.25 MG INHALATION Q4H October 28, 2017 12:00am Start: 10-28-2017 Levalbuterol T artrate (Xopenex Hfa) 45 mcg/actuation HFA aerosol inhaler Active 2 INH INHALATION EVERY 6 HOURS October 28, 2017 12:00am XOPENEX 1.25 MG/ 3ML NEBU prn LEVALBUTEROL HCL [id number] Tina Valenzuela LPN XOPENEX HFA 45 M CG/ACT AERO 2 puffs with spacer prn LEVALBUTEROL TARTRATE [id number] Tina Valenzuela LPN XOPENEX HFA 45 M CG/ACT AERO LEVALBUTEROL TARTRATE [id number] Mary Pinon LPN XOPENEX HFA 45 M CG/ACT AERO 2 puffs with spacer prn LEVALBUTEROL TARTRATE [id number] Tina Valenzuela LPN XOPENEX HFA 45 M CG/ACT AERO LEVALBUTEROL TARTRATE [id number] Mary Pinon LPN XOPENEX 1.25 MG/ 3ML NEBU prn LEVALBUTEROL HCL 91010989120 Tina Valenzuela LPN XOPENEX HFA 45 M CG/ACT AERO 2 puffs with spacer prn LEVALBUTEROL TARTRATE 15016609740 Tina Valenzuela LPN XOPENEX HFA 45 M CG/ACT AERO LEVALBUTEROL TARTRATE [id number] Mary Pinon LPN lisinopril 10 mg oral tablet (7 sources) Angiotensin Converting Enzyme Inhibitor Start: 10-28-2017 take 20 mg by mouth once daily Lisinopril Active 20 MG PO daily October 28, 2017 12:00am take 1 tablet by mouth once enoc y lisinopril 10 MG Tab take 10 mg by mouth daily. Active meloxicam 7.5 mg oral tablet (3 sources) Nonsteroidal Anti-inflammatory Drug Start: 09-02-2019 End: 10-11-2024 take 2 tablets by mouth once daily Meloxicam 7.5 MG tablet Indications: Ankle impingement syndrome, left Take 2 tablets by mouth daily. 30 tablet 10/11/2024 Active montelukast 10 mg oral tablet (10 sources) Leukotriene Receptor Antagonist End: 07-30-2017 take 1 tablet by mouth once daily montelukast 10 MG Tab take 10 mg by mouth daily. Active progesterone 100 mg oral capsule (12 sources) Progesterone Start: 12-24-2018 take 3 capsules by mouth at bedtime progesterone 100 MG Cap TAKE THREE CAPSULES BY MOUTH AT BEDTIME 2 12/24/2018 Active progesterone 200 MG Cap capsule Every 24 hours. Active PROGESTERONE JOE RONIZED 100 MG CAPS qd PROGESTERONE MICRONIZED [id number] Tina Valenzuela LPN PROGESTERONE JOE RONIZED 200 MG CAPS qd PROGESTERONE MICRONIZED [id number] Tina Valenzuela LPN levothyroxine sodium 0.1 mg oral tablet (16 sources) l-Thyroxine Start: 05-22-2020 take 100 ug by mouth once daily Levothyroxine Active 100 MCG PO DAILY May 21, 2020 11:00pm Start: 10-28-2017 End: 09-14-2018 take 1 capsule by mouth once daily levothyroxine 100 mcg capsule Discontinued 100 MCG PO daily October 28, 2017 12:00am September 14, 2018 12:51pm Start: 05-07-2010 End: 07-30-2017 SYNTHROID 112 MCG TABS 05/07 LEVOTHYROXINE SODIUM [id number] Tina Valenzuela LPN Start: 05-07-2010 End: 07-30-2017 SYNTHROID 112 MCG TABS 05/07 LEVOTHYROXINE SODIUM 85652776309 Tina Valenzuela LPN Start: 05-07-2010 SYNTHROID 112 MCG TABS LEVOTHYROXINE SODIUM 89433398940 Mary Pinon LPN Start: 05-07-2010 End: 07-30-2017 SYNTHROID 112 MCG TABS 05/07 LEVOTHYROXINE SODIUM 28070472191 Tina Valenzuela LPN Start: 05-07-2010 SYNTHROID 112 MCG TABS LEVOTHYROXINE SODIUM 57137526087 Mary Pinon LPN take 1 tablet by gaeb th once daily levothyroxine 125 MCG Tab take 125 mcg by mouth daily. Active LEVOTHYROXINE SO DIUM 100 MCG TABS qd LEVOTHYROXINE SODIUM 35436320217 Tina Valenzuela LPN Completed/Discontinued Medications Medication Drug Class(es) Dates Sig (Normalized) Sig (Original) cetirizine hydrochloride 10 mg oral tablet (8 sources) Histamine-1 Receptor Antagonist End: 07-30-2017 ZYRTEC HIVES RELIEF 10 MG TABS as needed CETIRIZINE HCL 17481634692 Mary Pinon LPN End: 07-30-2017 ZYRTEC HIVES RELIEF 10 MG TA BS as needed CETIRIZINE HCL 16289175212 Mary Pinon LPN DROSPIRENONE-ETHINYL ESTRADIOL TABS (8 sources) Progestin, Estrogen End: 07-30-2017 take 1 tablet by mouth once daily ANNMARIE TABS One tablet by mouth daily DROSPIRENONE-ETHINYL ESTRADIOL TABS [id number] Tina Valenzuela LPN End: 07-30-2017 take 1 tablet by mouth once daily ANNMARIE TABS One tablet by mouth daily DROSPIRENONE-ETHINYL ESTRADIOL TABS 29338632821 Tina Valenzuela LPN take 1 tablet by gabe th once daily ANNMARIE TABS One tablet by mouth daily DROSPIRENONE-ETHINYL ESTRADIOL TABS 20527918266 Mary Pinon LPN 14 actuat fluticasone propionate 0.25 mg/actuat / salmeterol 0.05 mg/actuat dry powder inhaler (8 sources) Corticosteroid, beta2-Adrenergic Agonist End: 07-30-2017 take 1 tablet by mouth once daily ADVAIR DISKUS 250-50 MCG/DOSE AEPB One tablet by mouth daily FLUTICASONE-SALMETEROL [id number] Tina Rivera Nicolas MENTAL TESTER End: 07-30-2017 take 1 tablet by mouth once daily ADVAIR DISKUS 250-50 MCG/DOSE AEPB One tablet by mouth daily FLUTICASONE-SALMETEROL 39093506492 Tina Valenzuela MENTAL TESTER take 1 tablet by gabe th once daily ADVAIR DISKUS 250-50 MCG/DOSE AEPB One tablet by mouth daily FLUTICASONE-SALMETEROL 91111165130 Maryale Shresthagold MENTAL TESTER End: 07-30-2017 take 1 tablet by mouth once daily ADVAIR DISKUS 250-50 MCG/DOSE AEPB One tablet by mouth daily FLUTICASONE-SALMETEROL 83508300200 Tina Valenzuela MENTAL TESTER take 1 tablet by gabe th once daily ADVAIR DISKUS 250-50 MCG/DOSE AEPB One tablet by mouth daily FLUTICASONE-SALMETEROL 80868626566 Mary Pinon LPN oxyCODONE hydrochloride 5 mg oral tablet (1 source) Opioid Agonist Start: 05-28-2020 End: 06-04-2020 take 5 mg by mouth every six hours as needed Oxycodone Discontinued 5 MG PO EVERY 6 HOURS NEEDED 28 05May 28, 2020 June 03, 2020 11:02pm Problems Active Problems Problem Classification Problem Date Documented Date Episodic/Chronic Complications of surgical procedures or medical care (3 sources) Postprocedural hypothyroidism; Translations: [POSTPROCEDURAL HYPOTHYROIDISM] Onset: 07-17-2025 Chronic Essential hypertension (3 sources) Essential (primary) hypertension; Translations: [ESSENTIAL PRIMARY HYPERTENSION] Onset: 10-14-2024 Chronic Nutritional deficiencies (1 source) Vitamin D deficiency, unspecified; Translations: [VITAMIN D DEFICIENCY UNSPECIFIED] Onset: 07-19-2025 Chronic Other connective tissue disease (2 sources) Pain in left foot; Translations: [Pain in left foot] 10-10-2024 Episodic Other connective tissue disease (2 sources) Pain in left foot; Translations: [Pain in left foot] Onset: 10-11-2024 Episodic Other injuries and conditions due to external causes (1 source) Injury of left lower leg; Translations: [Other injury of other muscle(s) and tendon(s) at lower leg level, left leg, initial encounter] 10-11-2024 Episodic Other injuries and conditions due to external causes (2 sources) Other injury of other muscle(s) and tendon(s) at lower leg level, left leg, initial encounter; Translations: [Other injury of other muscle(s) and tendon(s) at lower leg level, left leg, initial encounter] Onset: 10-11-2024 Episodic Other non-traumatic joint disorders (1 source) Impingement syndrome of ankle; Translations: [Other specified joint disorders, left ankle and foot] 10-11-2024 Episodic Other non-traumatic joint disorders (2 sources) Other specified joint disorders, left ankle and foot; Translations: [Other specified joint disorders, left ankle and foot] Onset: 10-11-2024 Episodic Other screening for suspected conditions (not mental disorders or infectious disease) (1 source) Encounter for screening mammogram for malignant neoplasm of breast; Translations: [Encounter for screening mammogram for malignant neoplasm of breast] Onset: 11-03-2024 Episodic Thyroid disorders (5 sources) Hypothyroidism; Translations: [Acquired hypothyroidism] Onset: 07-30-2017 07-30-2017 Chronic Past or Other Problems Problem Classification Problem Date Documented Da te Episodic/Chronic Chronic obstructive pulmonary disease and bronchiectasis (3 sources) Bronchitis, not specified as acute or chronic; Translations: [BRONCHITIS NOT SPEC ACUTE/CHRON] Onset: 09-28-2024 Episodic Sprains and strains (2 sources) Sprain of ankle; Translations: [Sprain of unspecified ligament of unspecified ankle, initial encounter] Onset: 01-10-2015 08-11-2022 Episodic Results Test Name Value Interpretation Reference Range Facility 25-hydroxyvitamin D [Mass/Vo l]on 07-17-2025 25-hydroxyvitamin D3 [Mass/Vol] 97.9 ng/mL Normal 30.0-100.0 [facility] Comment on above: Performed By: #### 6 2292-8, 24354-9, 3051-0, 3024-7 #### [facility] [address] [place] [address] Planner Chief - Columba LOCKWOOD [id number] HVITD VITAMIN D INTERPRETATION VITAMIN D STATUS RANGE ----- DEFICIENCY <20 ng/mL INSUFFICIENCY 20-30 ng/mL SUFFICIENCY 30-100 ng/mL TOXICITY >100 ng/mL Normal [facility] Comment on above: Performed By: #### 6 2292-8, 36107-7, 3051-0, 302-7 #### [place] [address] [place] [address] Planner Chief - [facility] [id number] FREE T3on 07-17-2025 Free T3 [Mass/Vol] 3.28 pg/mL Normal 2.18-3.98 [facility] Comment on above: Performed By: #### 6 2292-8, 48219-0, 3051-0, 302-7 #### [address] [place] [address] Planner Chief [facility] [id number] FREE T4on 07-17-2025 Free T4 [Mass/Vol] 1.14 ng/dL Normal 0.76-1.46 [facility] Comment on above: Performed By: #### 6 2292-8, 18947-3, 3051-0, 302-7 #### [address] [place] [address] Planner Chief [facility] [id number] TSH DL <= 0.05 mIU/L [facility] TSH Qn 0.523 uIU/mL Normal 0.358-3.740 [facility] Comment on above: Performed By: #### 6 2292-8, 28180-8, 3051-0, 302-7 #### [address] [place] [address] Planner Chief [facility] [id number] TSH DL <= 0.05 mIU/L [facility] TSH Qn 1.295 uIU/mL Normal 0.358-3.740 [facility] Comment on above: Performed By: #### 1 1579-0 #### [facility] [address] [place] [address] Planner Chief - Columba Yoder MANDIE [id number] XR FOOT LEFT 3+ VIEWSon XR FOOT LEFT 3+ VIEWS EXAM: XR FOOT LEFT 3+ VIEWS, 10/11/2024 09:04 AM COMPARISON: Radiographs dated September 02, 2019 CLINICAL INDICATIONS: pain RELEVANT CLINICAL HISTORY: M79.672:Left foot pain Weight bearing, AP, Lateral, oblique; FINDINGS: 3 weight-bearing images obtained. Soft Tissue: There is no significant soft tissue swelling. Bone: There is diffuse osseous demineralization. No acute fracture is evident. Enthesopathic change noted at the calcaneal insertion of the Achilles tendon and origin of the central cord of the plantar fascia. Joint: Narrowing and osteophytosis of the first MTP joint. There is diffuse narrowing of the interphalangeal joints throughout the forefoot. IMPRESSION: Osteopenia. No acute osseous abnormality. Osteoarthritis of the forefoot. Normal [facility] XR Foot - left 3 Viewson IMPRESSION: Osteopenia. No acute osseous abnormality. Osteoarthritis of the forefoot. OLOGY EXAM: XR FOOT LEFT 3 + VIEWS, 10/11/2024 09:04 AM COMPARISON: Radiographs dated September 02, 2019 CLINICAL INDICATIONS: pain RELEVANT CLINICAL HISTORY: M79.672:Left foot pain Weight bearing, AP, Lateral, oblique; FINDINGS: 3 weight-bearing images obtained. Soft Tissue: There is no significant soft tissue swelling. Bone: There is diffuse osseous demineralization. No acute fracture is evident. Enthesopathic change noted at the calcaneal insertion of the Achilles tendon and origin of the central cord of the plantar fascia. Joint: Narrowing and osteophytosis of the first MTP joint. There is diffuse narrowing of the interphalangeal joints throughout the forefoot. RADIOLOGY Carter Berry DO - 10/11/2024 EXAM: XR FOOT LEFT 3+ VIEWS, 10/11/2024 09:04 AM COMPARISON: Radiographs dated September 02, 2019 CLINICAL INDICATIONS: pain RELEVANT CLINICAL HISTORY: M79.672:Left foot pain Weight bearing, AP, Lateral, oblique; FINDINGS: 3 weight-bearing images obtained. Soft Tissue: There is no significant soft tissue swelling. Bone: There is diffuse osseous demineralization. No acute fracture is evident. Enthesopathic change noted at the calcaneal insertion of the Achilles tendon and origin of the central cord of the plantar fascia. Joint: Narrowing and osteophytosis of the first MTP joint. There is diffuse narrowing of the interphalangeal joints throughout the forefoot. IMPRESSION IMPRESSION: Osteopenia. No acute osseous abnormality. Osteoarthritis of the forefoot. [facility] Radiology Study observation (narrative) [facility] XR Foot - left 3 ViewsOrdere d By: Carter Berry on 10-11-2024 [facility] Work Phone: SCRN MAMM (CAD)W/BERTRAM BILATo n 10-05-2024 SCRN MAMM (CAD)W/BERTRAM BILAT [facility] Imaging Services [address] [place] [address] [id number] SCRN MAMM (CAD)W/BERTRAM BILAT MR#: [id number] Acct: [id number] Name: HALIE SANTANA Rep #: [id number] : 1970 F 53 From: Nathan Lucio MD PCP: HANNAH JonesC Status: REG [facility] Study: SCRN MAMM (CAD)W/BERTRAM BILAT Date of Exam: 09/10 06/01 Exam# [id number] Ordering Dr: Carroll Calzada N P-C [id number] MAMMOGRAPHY - BILATERAL SCREENING 3-D TOMOSYNTHESIS REASON FOR EXAM: Female, 53 years old. Routine screening PERTINENT HISTORY: Grandmothers and aunts with breast cancer.. TECHNIQUE: 2-D mammograms and 3-D Tomosynthesis of the breast (s) were performed. CAD was performed. COMPARISON: 12/23/2021 FINDINGS: The breast composition is composed of scattered fibroglandular density. Scattered benign calcifications are seen. No dense spiculated masses or suspicious microcalcifications are identified. No architectural distortion is identified. There is no skin thickening or retraction. There has been no significant change since the prior study. BI/SCRN MAMM (CAD)W/BERTRAM BILAT IMPRESSION: No mammographic signs of malignancy. Routine yearly mammograms recommended. ASSESSMENT CATEGORY: BIRADS Category 1: Negative. A letter regarding these results will be sent to the patient by the facility within 30 days. FOLLOW UP RECOMMENDATION: Yearly follow up mammogram recommended. (A) Approximately 10% of breast cancers are not detected by mammography. A normal mammogram should not delay biopsy of a clinically suspicious abnormality. Electronically Signed: Scout Lucio MD at 10:52 EST , CC: BIBIANA Calzada Tag Marker: Signed Normal [facility] CHEST AND LATERAL OR 2 VIEWS on 09-28-2024 CHEST AND LATERAL OR 2 VIEWS EXAM: CHEST AND LATERAL OR 2 VIEWS TECHNIQUE: PA and lateral view of the chest HISTORY: Bronchitis COMPARISON: Chest x-ray: 02/16/2024 FINDINGS: The heart and mediastinum are unremarkable. The lung montes are clear of any acute infiltrate, effusion or mass. No acute bony abnormality. Mild levoconvex curvature. ____ IMPRESSION: No acute pulmonary disease. Normal [facility] Lab Report: T4 Free Directon 10-05-2017 Thyroxine (T4) free 1.30 ng/dL Invalid Interpretation Code 0.76-1.46 [facility] Work Phone: Lab Report: Thyroid Stim Hor ellis (TSH)on 10-05-2017 Thyroid stimulating hormone (TSH) 0.67 u[iU]/mL Invalid Interpretation Code 0.358-3.74 [facility] Work Phone: Office Visit: Hypothyroid Co nsulton 07-30-2017 Adult depression screening assessment Adult depression screening assessment Invalid Interpretation Code [facility] Work Phone: Documentation of current medications (procedure) Done Invalid Interpretation Code [facility] Work Phone: Tobacco smoking status NHIS Never Invalid Interpretation Code [facility] Work Phone: Tobacco use [facility] Never smoker Invalid Interpretation Code [facility] Work Phone: Replaced Document: T4 Free D irecton 07-30-2017 Thyroxine (T4) free 1.45 ng/dL Invalid Interpretation Code 0.76-1.46 [facility] Work Phone: Replaced Document: Thyroid S scarlett Hormone (TSH)on 07-30-2017 Thyroid stimulating hormone (TSH) 0.64 u[iU]/mL Invalid Interpretation Code 0.358-3.74 [facility] Work Phone: Lab Report: CAon 07-25-2010 Calcium 8.9 mg/dL Normal 8.5-10.1 [facility] Work Phone: Clinical Lists Update: Prelo plastic surgery nurse 06-20-2010 Tobacco use [facility] quit Invalid Interpretation Code [facility] Work Phone: Clinical Lists Update: Prelo plastic surgery nurse 05-01-2010 Parathyrin intact (PTH) 54 pg/mL Invalid Interpretation Code [facility] Work Phone: Clinical Lists Update: Prelo plastic surgery nurse 02-25-2010 Alanine aminotransferase (ALT) 25 U/L Invalid Interpretation Code [facility] Work Phone: Aspartate aminotransferase (AST) 31 U/L Invalid Interpretation Code [facility] Work Phone: Basophils/100 leukocytes 0 % Invalid Interpretation Code [facility] Work Phone: Chloride 98 mmol/L Invalid Interpretation Code [facility] Work Phone: CO2 20 mmol/L Invalid Interpretation Code [facility] Work Phone: Creatinine 0.74 mg/dL Invalid Interpretation Code [facility] Work Phone: eGFR (non-black) mL/min/{1.73_m2} Invalid Interpretation Code [facility] Work Phone: eosinophil count, as percentage of total cells, cerebral spinal fluid 1 % Invalid Interpretation Code [facility] Work Phone: Erythrocytes (RBC) 4.85 10*6/mm3 Invalid Interpretation Code [facility] Work Phone: Glucose 88 mg/dL Invalid Interpretation Code [facility] Work Phone: Glucose mass conc 88 mg/dL Invalid Interpretation Code [facility] Work Phone: Hematocrit (HCT) 43.8 % Invalid Interpretation Code [facility] Work Phone: Hemoglobin (HGB) 15.1 g/dL Invalid Interpretation Code [facility] Work Phone: MCH 31.1 pg Invalid Interpretation Code [facility] Work Phone: MCHC 34.4 g/dL Invalid Interpretation Code [facility] Work Phone: MCV 90 fL Invalid Interpretation Code [facility] Work Phone: Monocytes/100 leukocytes 7 % Invalid Interpretation Code [facility] Work Phone: Neutrophils 4.2 10*3/uL Invalid Interpretation Code [facility] Work Phone: Platelets 363 10*3/mm3 Invalid Interpretation Code [facility] Work Phone: Potassium 3.7 mmol/L Invalid Interpretation Code [facility] Work Phone: RDW-CA 13.8 % Invalid Interpretation Code [facility] Work Phone: Sodium 141 mmol/L Invalid Interpretation Code [facility] Work Phone: Thyroxine (T4) 10.0 ug/dL Invalid Interpretation Code [facility] Work Phone: Urea nitrogen 16 mg/dL Invalid Interpretation Code [facility] Work Phone: WBC (Leukocytes) 7.1 10*3/uL Invalid Interpretation Code [facility] Work Phone: Vital Signs Date Time Vital Sign Value Performing Clinician Facility 09-21-2017 08:41-0400 BMI (Body Mass Index) 25.59 kg/m2 Janine Atknis NP [facility] Work Phone: 07-30-2017 08:41-0400 BP Diastolic 89 mm[Hg] Janine Atkins NP [facility] Work Phone: 07-30-2017 08:41-0400 BP Systolic 141 mm[Hg] Janine Atkins NP [facility] Work Phone: 07-30-2017 08:41-0400 Height 170.81 cm Janine Atkins NP [facility] Work Phone: 07-30-2017 08:41-0400 Pulse (Heart Rate) 66 /min Janine Atkins NP [facility] Work Phone: 07-30-2017 08:41-0400 Respiratory Rate 18 /min Janine Atkins NP [facility] Work Phone: 07-30-2017 08:41-0400 Weight 74.66 kg Janine Atkins NP [facility] Work Phone: 05-01-2010 10:24-0400 BMI (Body Mass Index) 23.25 kg/m2 Janine Atkins NP [facility] Work Phone: 05-01-2010 10:24-0400 BP Diastolic 80 mm[Hg] Janine Atkins NP [facility] Work Phone: 05-01-2010 10:24-0400 BP Systolic 126 mm[Hg] Janine Atkins NP [facility] Work Phone: 05-01-2010 10:24-0400 BSA (Body Surface Area) 1.79 m2 Janine Atkins NP [facility] Work Phone: 05-01-2010 10:24-0400 Height 170.82 cm Janine Atkins NP [facility] Work Phone: 05-01-2010 10:24-0400 Height 170.81 cm [facility] Work Phone: 05-01-2010 10:-040 Weight 67.73 kg [facility] Work Phone: 05-01-2010 10:24040 Weight 67.59 kg [facility] Work Phone: Encounters Encounter Date Encounter Type Care Provider Facility Start: 08-25-2026 ambulatory CARROLL N ARMST YANNI FOOD PREPARATION KITCHEN AIDE Facility:[facility] Start: 07-17-2025 End: 07-17-2025 ambulatory CARROLL N CALZADA FOOD PREPARATION KITCHEN AIDE Facility:[facility] Start: 07-15-2025 End: 07-15-2025 ambulatory CARROLL N CALZADA FOOD PREPARATION KITCHEN AIDE Facility:[facility] Start: 12-13-2024 End: 12-13-2024 ambulatory GINGER Rivera~[id number] Facility:[facility] Start: 10-14-2024 End: 10-14-2024 ambulatory CARROLL N CALZADA FOOD PREPARATION KITCHEN AIDE Facility:[facility] Start: 10-11-2024 End: 10-11-2024 Office outpatient new 45 minutes Oscar Valenzuela DO Work Phone: [facility] Comment on above: Left foot pain (Prim steffen Dx); Left medial tibial stress syndrome, initial encounter; Ankle impingement syndrome, left Start: 10-11-2024 End: 10-11-2024 Subsequent hospital visit by physician Oscar Valenzuela DO Work Phone: [facility] [place] Comment on above: Arrived Start: 10-11-2024 ambulatory OSCAR VALENZUELA Facility :[facility] Start: 10-05-2024 End: 10-05-2024 ambulatory Carroll N Calzada Facility:[facility] Start: 09-28-2024 End: 09-28-2024 ambulatory CARROLL N CALZADA FOOD PREPARATION KITCHEN AIDE Facility:[facility] Start: 09-09-2024 ambulatory CALZADA ASHL EE N CALZADA FOOD PREPARATION KITCHEN AIDE~[id number] Facility:[facility] Start: 12-24-2022 End: 12-24-2022 ambulatory [facility] Work Phone: Start: 12-24-2022 End: 12-24-2022 Patient encounter procedure [facility]-Outpatient Breast Imaging Procedures Date Procedure Procedure Detail Performing Clinician Start: 10-11-2024 Radex foot complete minimum 3 views Oscar Valenzuela DO Work Phone: Start: 12-24-2022 Screening mammography Start: 10-05-2017 End: 10-05-2017 Thyrotropin [Units/volume] in Serum or Plasma Janine Atkins NP Work Phone: Start: 10-05-2017 End: 10-05-2017 Thyroxine (T4) free [Mass/volume] in Serum or Plasma Janine Atkins NP Work Phone: Start: 07-30-2017 End: 08-09-2017 Thyrotropin [Units/volume] in Serum or Plasma Janine Atkins NP Work Phone: Start: 07-30-2017 End: 08-09-2017 Thyroxine (T4) free [Mass/volume] in Serum or Plasma Janine Atkins NP Work Phone: Start: 07-30-2017 End: 08-09-2017 Thyroid stimulating hormone (TSH) Janine Atkins NP Work Phone: Start: 07-30-2017 End: 08-09-2017 Thyroxine (T4) free Janine Atkins NP Work Phone: Plan of Treatment Date Care Activity Detail Author Start: 06-27-2030 Tetanus vaccination TETANUS [facility] Start: 07-10-2024 COVID-19 VACCINE ( season) COVID-19 VACCINE ( season) [facility] Start: 02-01-2021 Zoster vaccine hzv live for subcutaneous use ZOSTER (SHINGLES) VACCINE (2 of 2) [facility] Start: 10-28-2017 End: 10-28-2017 Appointment Appointment [facility] Work Phone: Start: 10-05-2017 End: 10-05-2017 Thyroid stimulating hormone (TSH) *TSH [facility] Work Phone: Start: 10-05-2017 End: 10-05-2017 Thyroxine (T4) free *T4 free [facility] Work Phone: Start: 07-30-2017 End: 07-31-2017 Thyroid stimulating hormone (TSH) *TSH [facility] Work Phone: Start: 07-30-2017 End: 07-31-2017 Thyroxine (T4) free *T4 free [facility] Work Phone: Start: 07-30-2017 End: 07-31-2017 Thyroid stimulating hormone (TSH) *TSH [facility] Work Phone: Start: 07-30-2017 End: 07-31-2017 Thyroxine (T4) free *T4 free [facility] Work Phone: Start: 2013 Screening for malignant neoplasm of colon COLORECTAL CANCER SCREENING DISCUSSION [facility] Start: 2008 Lipid panel LIPID SCREENING [facility] Start: 2008 Screening for malignant neoplasm of breast MAMMOGRAM SCREENING DISCUSSION [facility] Start: 1989 Screening for malignant neoplasm of cervix CERVICAL CANCER SCREENING DISCUSSION [facility] Start: 1987 Hepatitis B vaccination HEP B VACCINE (1 of 3 - 19+ 3-dose series) [facility] Start: 1983 HIV screening HIV SCREENING DISCUSSION [facility] Start: 1968 Hepatitis C screening HEPATITIS C VIRUS SCREENING [facility] Start: 1968 Thyroid stimulating hormone measurement TSH [facility] Immunizations Immunization Date Immunization Notes Care Provider Albert lopez 12-07-2020 zoster vaccine, unspecified formulation Oscar Valenzuela DO Work Phone: [facility] Payers Date Payer Category Payer Self-pay [id number] 2023 Private Health Insurance [facility] [id number] 2023-Present [address] [address] [place] [address] [id number] 2016 Unknown SHAHEED [id number] 1968 Unknown [id number] 1968 Unknown [id number] 1968 Unknown [id number] 1968 Unknown [id number] 1968 Unknown [id number] 1968 Unknown [id number] 1968 Unknown [id number] 1968 Unknown [id number] 1968 Unknown [id number] 1959 Unknown [id number] 1959 Unknown [id number] Private Health Insurance [facility] [id number] Unknown [id number] 60 Social History Date Type Detail Facility Start: 05-21-2020 [facility] Start: 05-21-2020 Non-smoker [facility] Start: 1970 Sex Assigned At Female [facility] Start: 12-13-2014 Tobacco smoking stat [facility] Never smoked tobacco [facility] Start: 12-13-2014 Tobacco use and exposure Smokeless tobacco non-user [facility] Start: 01-12-2022 Alcoholic beverage intake Current non-drinker of alcohol (finding) [facility] Start: 01-12-2022 History of Social function [facility] Start: 01-12-2022 Tobacco use panel [facility] Start: 1970 Sex assigned at Not on file [facility] Start: 10-10-2024 Gender identity Choose not to disclo se [facility] History of Present illness Narrative 10-11-2024 Caio Rousseau MD - 10/11/2024 9:15 AM Katerin Valenzuela DO - 10/11/2024 9:15 AM EST Note Date & Type Note Facility 10-11-2024 History of Present illness Narrative [facility]: NEW PATIENT and CONSULT EVALUATION Date of Visit: 10/11/24 Chief complaint: Chief Complaint Patient presents with Left Foot - Pain L foot pain x6m, NKI. States she had fx in lateral foot 10yrs ago. Pain located medial arch, described as burning. Agg w/ nothing specific. Denies mechanical symptoms & n/t TX: tyl/ibu. History of present illness: Halie Santana is a 53 y.o., adult referred by Self, Self who presents today stating she is having 6 months of medial ankle pain for 6 months. No trauma. No increase in activity. Having has improved with seeing sports medicine. Denies numbness and tingling. Has some burning/throbbing pain. Has not tried topical voltaren gel. Tyl and ibu help with pain . She states she does have history of stress fracture of the but this was on the cuboid back in 2014. Has history of osteopenia Review of Systems: Pertinent positives as listed in HPI, all other systems reviewed and are negative PFSH: Past Medical History: has a past medical history of Asthma, History of chicken pox, and Hypothyroidism. Past Surgical History: has a past surgical history that includes gall bladder surgery (N/A, 1999) and thyroid surgery (2006). Allergies: is allergic to sulfa antibiotics. Medications: has a current medication list which includes the following prescription(s): ergocalciferol, levothyroxine, lisinopril, meloxicam, montelukast, progesterone, and progesterone. Social History: reviewed in chart. reports that Halie has never smoked. Halie has never used smokeless tobacco. Family History: no bleeding disorders Physical examination: Constitutional: Patient is alert and orientated, well kempt, no acute distress Wt Readings from Last 1 Encounters: 04/04/15 65.8 kg (145 lb) , There is no height or weight on file to calculate BMI. Musculoskeletal Exam: Gait: non-antalgic Standing Exam: Neutral Pulse: palpable dorsalis pedis, toes perfused Skin: intact Neurologic: Sensation intact to light touch, no deficits appreciated to: superficial peroneal deep peroneal nerves, sural and saphenous nerves Musculoskeletal: -Peroneal longus 5\5 -Peroneal brevis 5\5 -Posterior tibial tendon 5\5 -Anterior tibial tendon 5\5 -Extensor Hallicis longus 5\5 Ankle: Palpation: Ttp at PT tendon. Tenderness to medial tibia. TTP at plantar fascia - Anterior Drawer: Negative Ankle dorsiflexion__20__degrees Foot: TTP at plantar fascia Radiology: Independently reviewed and interpreted Demonstrating: no acute fracture at the foot appreciated Assessment: ICD-10-CM 1. Left foot pain M79.672 XR FOOT LEFT 3+ VIEWS 2. Left medial tibial stress syndrome, initial encounter S86.892A PLAN: 1. I discussed conservative treatment options and surgical options in detail explaining the risks and benefits of each to Halie Santana A. rest, maximize anti inflammatories, and alter activity modification B. She can alternate activity given pain with walking. She can do more biking and more upper body weight lifting. If she continues to have pain, we may need to get a MRI given history of stress fractures and Osteopenia. Encouraged vitamin d. Medical Decision Making: Contributing risks- has a past medical history of Asthma, History of chicken pox, and Hypothyroidism. Radiographs- Independently reviewed and interpreted as above Reviewed old records (radiographs)- yes C. After discussing the risks and benefits with Halie Santana we collectively agreed to proceed with aforementioned treatment plan 2. Surgical Plan: none Follow up X-Rays: yes I interviewed and examined this patient with the resident. I reviewed the history and exam detailed in the note. I agree with the medical decision making with the following comment(s): The patient describes a long history of stress reactions and stress fractures. She is continuing to walk 3 miles 3 times a week. She is doing this and I bike path. She states the pain is improving but is continuing to have along the inside of her leg and ankle. On examination she has good 5/5 strength of the posterior tibial tendon but does have tenderness along the posterior medial aspect of the tibia that causes her to withdraw with pain along the medial tibial ridge X-rays demonstrate previous cuboid fracture with mild midfoot arthritis, I can not appreciate any stress reaction or fracture to the distal tibia Assessment: 1. Medial tibial stress syndrome rule out stress reaction, 2. Osteopenia Plan I talked to her extensively about alternating her workout activity and to increase cycling rowing swimming and I strongly recommended light free weights for overall bone health and osteopenia We talked about if her pain worsens she should discontinue the impact activities as this could become a stress reaction. She will follow up with sports medicine closely if she has any changes Topical Voltaren, compression Socks Meloxicam 15 mg q.day x7 days then as needed Continue vitamin-D and following up with primary care for overall bone health documented in this encounter [facility] Evaluation note Note Date & Type Note Facility Evaluation note No assessment information availa [facility] Work Phone: Evaluation note Note Date & Type Note Facility Evaluation note Diagnosis Left foot pain- Primary Pain in limb Left medial tibial stress syndrome, initial encounter Ankle impingement syndrome, left Left foot pain Pain in limb documented in this encounter [facility] Evaluation note Note Date & Type Note Facility Evaluation note Diagnosis Left foot pain Pain in limb documented in this encounter [facility] Chief Complaint and Reason for Visit Chief Complaint SCREENING Family History No Family History Records Found Relationship Condition Age at Onset Recorded Date/T ivet Not Specified Cerebrovascular accident (CVA) Unknown Hypertension Unknown Asthma Unknown aunt Malignant neoplasm of breast Unknown grandmother Cardiac disease Unknown Advance Directives No Advanced Directives Records Found Advance Directive Response Recorded Date/ Time Living Will No May 28, 2020 10:32am Power of Still Cleaner No May 28 0 10:32am Summary Purpose Additional Source Comments Care Teams (unrecognized sec tion and content) Team Status: Active Member Role Status Dates CARROLL CALZADA Primary Care Provider Active Team Status: Inactive Member Role Status Dates JANA HODGES Primary Care Provide r, Attending Provider, Referring Provider Active Visual Lead Relationship Specialty Start Date End Date Paul Allen MD [address] [place] [address] PCP - General Family Medicine 12/13/14 Visual Lead Relationship Specialty Start Date End Date Paul Allen MD [address] [place] [address] PCP - General Family Medicine 12/13/14 Goals (unrecognized section and content) Goals may be documented in a n alternate section Reason for Visit (unrecogniz ed section and content) Reason Comments Pain L foot pain x6m, NKI . States she had fx in lateral foot 10yrs ago. Pain located medial arch, described as burning. Agg w/ nothing specific. Denies mechanical symptoms & n/t TX: tyl/ibu. INFORMATION SOURCE (unrecogn ized section and content) DATE CREATED AUTHOR 10/12/2024 [facility] DATE CREATED AUTHOR AUTHOR'S ORGANIZ ATION 11/05/2024 [facility] DATE CREATED AUTHOR AUTHOR'S ORGANIZ ATION 08/27/2025 [facility] FOR RECORDS PERTAINING TO PATIENTS WHO ARE OR HAVE BEEN ENROLLED IN A CHEMICAL DEPENDENCY/SUBSTANCEABUSE PROGRAM, SOME INFORMATION MAY BE OMITTED. This clinical summary was aggregated from multiple sources. Caution should be exercised in using it in the provision of clinical care. This summary normalizes information from multiple sources, and as a consequence, information in this document may materially change the coding, format and clinical context of patient data. In addition, data may be omitted in some cases. CLINICAL DECISIONS SHOULD BE BASED ON THE PRIMARY CLINICAL RECORDS. [employer] [facility]. provides no warranty or guarantee of the accuracy or completeness of information in this document.
== END | disposition home or self-care (01) ==
LOC: OPBI 10:43
PROVIDERS: PCP Nurse Practitioner Family; Referring Provider Nurse Practitioner Family; Visit Provider Nurse Practitioner Family
DX: Z12.31 Encounter for screening mammogram for malignant neoplasm of breast (principal)
CPT/HCPCS: 77063; 77067